=== PATIENT | female | born 1965 | race Two or more races ===

== ENCOUNTER 2021-02-09 05:25 | Day surgery (SDC) | payer OTHER ==
[~2021-02-09 05:25] MED LIST: ADULT LOW DOSE81 M1 PO; ATORVASTATIN CA10 MG PO; CALCIUM500 M1 PO; FOSAMAX70 MG PO; GABAPENTIN100 M2 PO; INDERAL1 MG/M1; IRBESARTAN300 MG PO; MAXIMUM ENERGY1 EACH PO; METFORMIN HCL500 M3 PO; TOPROL XL100 M1 PO
[2021-02-09] MEDS ORDERED: CILOXAN5 ML OTIC (10:16)
[2021-02-09] MEDS ORDERED: AMOXICILLIN500 M1 PO (10:16)
== END 2021-02-09 14:00 | disposition home or self-care (01) ==
LOC: CIR.AMB 05:25
PROVIDERS: ATTEND Otolaryngology Otology & Neurotology
DX: H90.A31 Mixed conductive and sensorineural hearing loss, unilateral, right ear with restricted hearing on the contralateral side (principal); H95 Intraoperative and postprocedural complications and disorders of ear and mastoid process, not elsewhere classified; Z20.822 Contact with and (suspected) exposure to COVID-19